=== PATIENT | male | born 1940 | race Caucasian/White ===

== ENCOUNTER 2019-10-19 06:04 | Outpatient (CLI) | payer MEDICARE, OTHER ==
[2019-10-19 11:34] LABS: #Eosinphils 0.1 thou/uL (0.0-0.7); %Monocytes 10.7 % (0.0-10.0); Mean Corpuscular Volume 96.5 fL (78.0-98.0); Platelet Count 178 thou/uL (130-400); RBC Distribution Width 12.8 % (11.5-14.5)
[2019-10-19 11:53] LABS: #Basophils 0.1 thou/uL (0.0-0.2); #Lymphocytes 2.4 thou/uL (1.20-3.40); #Monocytes 0.9 thou/uL (0.11-0.59); #Neutrophils 4.6 thou/uL (1.40-6.50); %Basophils 0.7 % (0.0-1.0); %Eosinophils 1.8 % (0.0-10.0); %Lymphocytes 29.2 % (21.0-51.0); %Neutrophils 57.5 % (42.0-75.0); Hemoglobin 13.9 g/dL (14.0-18.0); Mean Corpuscular HGB CONC 32.9 g/dL (32.0-36.0); Mean Corpuscular Hemoglobin 31.8 pg (27.0-31.0); Mean Platelet Volume 8.6 fL (7.4-10.4); Red Blood Cell (RBC) Count 4.36 mill/uL (4.70-6.10); White Blood Cell (WBC) Count 8.1 thou/uL (4.8-10.8)
[2019-10-19 15:16] LABS: ALT (SGPT) 10 U/L (8-55); AST (SGOT) 16 U/L (5-34); Albumin 4.1 g/dL (3.4-4.8); Alkaline Phosphatase 91 U/L (40-110); Anion Gap 16 mmol/L (10-20); BUN (Urea Nitrogen) 21 mg/dL (8.4-25.7); Bilirubin, Total 0.5 mg/dL (0.2-1.2); Calc. Creatinine Clearance 0 mL/min (70-130); Calcium 9.3 mg/dL (7.8-10.44); Carbon Dioxide 21 mmol/L (23-31); Chloride 107 mmol/L (98-107); Cholesterol 192 mg/dl (< 200 Desired); Estimated GFR-MDRD 55; Globulin 3.5 g/dL (2.4-3.5); Glucose 91 mg/dL (83-110); HDL Cholesterol 48 mg/dL (>60 Neg Risk); LDL Cholesterol, Calculated 128 mg/dL; Potassium 4.2 mmol/L (3.5-5.1); Protein, Total 7.6 g/dL (5.8-8.1); Sodium 140 mmol/L (136-145); Triglycerides 81 mg/dL (Less than 150)
[2019-10-19 20:19] LABS: SARS-CoV-2 MS2 Positive; SARS-CoV-2 N Gene Negative; SARS-CoV-2 S Gene Negative; SARS-CoV-2 orf1ab Negative
== END 2019-10-19 06:05 | disposition home or self-care (01) ==
LOC: LABBT 06:04
PROVIDERS: ATTEND Internal Medicine Cardiovascular Disease
DX: Z01.812 Encounter for preprocedural laboratory examination (principal); Z11.59 Encounter for screening for other viral diseases; R94.39 Abnormal result of other cardiovascular function study
CPT/HCPCS: 80053; 80061; 85025; U0003; 87635

== ENCOUNTER 2019-10-21 05:57 | Inpatient (IN) | payer MEDICARE, OTHER ==
[2019-10-21] MEDS ORDERED: Heparin 10,000 UNITS/1 ML VIAL ONE (06:43)
[2019-10-21] MEDS ORDERED: Midazolam HCl 2 mg/2 ml Vial ONE ×2 (06:52→08:09)
[2019-10-21] MEDS ORDERED: Fentanyl 100 MCG/2 ML VIAL ONE (07:07)
[2019-10-21] MEDS ORDERED: Nitroglycerin 100MG/250ML BOT 250 ML ONE (07:51)
[2019-10-21] MEDS ORDERED: Bivalirudin 250 MG VIAL ONE (08:01)
[2019-10-21] MEDS ORDERED: Clopidogrel Bisulfate 300 MG TAB ONE (08:01)
[2019-10-21] MEDS ORDERED: Ondansetron PF 4 MG/2 ML Vial ONE (08:09)
[2019-10-21] MEDS ORDERED: Nitroglycerin 50 MG/250 ML BOT 250 ML IVPB SCH (08:45)
[2019-10-21] MEDS ORDERED: Sodium Chloride 0.9% 1,000 ML IV SCH (09:00)
[2019-10-21] MEDS ORDERED: Metoprolol Tartrate 25 MG TAB PO SCH (09:00)
[2019-10-21] MEDS ORDERED: Nitroglycerin 0.4 MG TAB (25 Tab Bottle) SL PRN (09:01)
[2019-10-21] MEDS ORDERED: Morphine 2 MG/ML SYRINGE SLOW IVP PRN (09:01)
[2019-10-21] MEDS ORDERED: Iopamidol 370 76% 100 ML VIAL ONE (09:09)
[2019-10-21] MEDS ORDERED: Iopamidol 370 76% 50 ML VIAL FS ONE (09:09)
[2019-10-21] MEDS: Lisinopril 20 MG TAB PO SCH (12:49)
[2019-10-21] MEDS ORDERED: Carvedilol 3.125 MG TAB PO SCH (13:00)
--- NOTE | 2019-10-21 15:50 | EKG ---
Test Reason : POST STENTS X3-LAD Blood Pressure : / mmHG Vent. Rate : 064 BPM Atrial Rate : 064 BPM P-R Int : 204 ms QRS Dur : 132 ms QT Int : 434 ms P-R-T Axes : 067 -45 038 degrees QTc Int : 447 ms Normal sinus rhythm Left axis deviation Right bundle branch block Abnormal ECG Confirmed by GATITO NAIR ([id number]) on 10/21/2019 3:50:16 PM Referred By: JONELLE Confirmed By:GATITO NAIR
[2019-10-21] MEDS: Carvedilol 3.125 MG TAB PO SCH (18:00)
--- NOTE | 2019-10-21 18:05 | CON ---
DATE OF CONSULTATION: 10/20/2021 HISTORY OF PRESENT ILLNESS: Checo Sands is a very pleasant 79-year-old male. He has undergone coronary stenting. He says he is feeling well, but came in actually because of an abnormal stress test. Apparently, his graft to his left anterior descending coronary artery was occluded, so he had stenting. He still has a sheath in. He has no complaints at this time. I am consulted because of his presence in the critical care unit. He has not been hospitalized here before. PAST MEDICAL HISTORY: Remarkable for: 1. Coronary artery bypass grafting. 2. History of lipid disorder. FAMILY HISTORY: Negative for lung disease in early age. SOCIAL HISTORY: Unremarkable. REVIEW OF SYSTEMS: Otherwise negative. PHYSICAL EXAMINATION: GENERAL: He is in no distress, heart rate is in the 60s, blood pressure 185/87, respiratory rate is 19. It is noted when we started talking about hunting, his blood pressure did go up. HEAD AND NECK: Unremarkable. LUNGS: Clear. HEART: Regular rhythm. No S3. Grade 1/6 to 2/6 systolic murmur. ABDOMEN: Soft and nontender. EXTREMITIES: Without clubbing, cyanosis, or edema. His feet are warm. IMPRESSION: Status post coronary stenting with a history of coronary artery bypass grafting in the past. PLAN: Continue supportive care. Once his coagulopathy is corrected and sheath will come out and hopefully he will be ambulatory by tomorrow. Some new medications are started, that should control his blood pressure. TIME SPENT: This is a 70-minute consult, 50% of the time spent on the unit coordinating care. Job ID: [id number] MTDD
[2019-10-21] MEDS ORDERED: Ondansetron PF 4 MG/2 ML Vial IVP PRN (20:07)
[2019-10-21] MEDS: Atorvastatin Calcium 40 MG TAB PO SCH (20:56)
[2019-10-22 03:44] LABS: #Lymphocytes 1.4 thou/uL (1.20-3.40); #Neutrophils 9.3 thou/uL (1.40-6.50); %Basophils 0.1 % (0.0-1.0); %Eosinophils 0.1 % (0.0-10.0); %Monocytes 8.4 % (0.0-10.0); %Neutrophils 79.4 % (42.0-75.0); Hemoglobin 12.1 g/dL (14.0-18.0); Mean Corpuscular HGB CONC 32.4 g/dL (32.0-36.0); Mean Corpuscular Hemoglobin 31.1 pg (27.0-31.0); Mean Corpuscular Volume 95.9 fL (78.0-98.0); Mean Platelet Volume 8.7 fL (7.4-10.4); Platelet Count 176 thou/uL (130-400); RBC Distribution Width 12.8 % (11.5-14.5); Red Blood Cell (RBC) Count 3.88 mill/uL (4.70-6.10); White Blood Cell (WBC) Count 11.7 thou/uL (4.8-10.8)
[2019-10-22 04:11] LABS: ALT (SGPT) Less than 7 U/L (8-55); AST (SGOT) 12 U/L (5-34); Albumin 3.5 g/dL (3.4-4.8); Alkaline Phosphatase 77 U/L (40-110); Anion Gap 9 mmol/L (10-20); BUN (Urea Nitrogen) 23 mg/dL (8.4-25.7); Bilirubin, Total 0.7 mg/dL (0.2-1.2); Calc. Creatinine Clearance 45 mL/min (70-130); Calcium 9.1 mg/dL (7.8-10.44); Carbon Dioxide 27 mmol/L (23-31); Chloride 106 mmol/L (98-107); Estimated GFR-MDRD 45; Globulin 3.4 g/dL (2.4-3.5); Glucose 110 mg/dL (83-110); Potassium 3.9 mmol/L (3.5-5.1); Protein, Total 6.9 g/dL (5.8-8.1); Sodium 138 mmol/L (136-145)
[2019-10-22] MEDS: Clopidogrel Bisulfate 75 MG TAB PO SCH (08:28)
[2019-10-22] MEDS: Carvedilol 3.125 MG TAB PO SCH ×3 (08:28→20:47)
[2019-10-22] MEDS: Aspirin 81 mg Enteric Coated Tablet PO SCH (08:28)
[2019-10-22] MEDS: Lisinopril 20 MG TAB PO SCH (08:28)
--- NOTE | 2019-10-22 11:44 | PRG ---
DATE OF SERVICE: 10/22/2019 SUBJECTIVE: Checo Sands has no chest pain. OBJECTIVE: VITAL SIGNS: Heart rate in the 60s, blood pressure 146/82, respiratory rates in the teens to low 20s. LUNGS: Clear. HEART: Regular rhythm. ABDOMEN: Soft. LABORATORY DATA: White count 11.7, hemoglobin 12.1, platelets 176. Electrolytes are normal. Creatinine is 1.5. Creatinine on 10/18 was 1.26. IMPRESSION: 1. Status post coronary stenting. 2. Acute on chronic kidney disease with a bump in creatinine as expected after contrast. This should normalize quickly. He is stable from my standpoint either to move out or even go home if Cardiology agrees. We will sign off. Job ID: [id number]
--- NOTE | 2019-10-22 14:03 | EKG ---
Test Reason : Blood Pressure : / mmHG Vent. Rate : 072 BPM Atrial Rate : 072 BPM P-R Int : 184 ms QRS Dur : 146 ms QT Int : 438 ms P-R-T Axes : 073 -35 046 degrees QTc Int : 479 ms Sinus rhythm with Premature atrial complexes Left axis deviation Right bundle branch block Abnormal ECG Confirmed by GATITO NAIR ([id number]) on 10/22/2019 2:02:35 PM Referred By: JONELLE Confirmed By:GATITO NAIR
[2019-10-22 14:04] VITALS: BMI 24.2
[2019-10-22] MEDS: Atorvastatin Calcium 40 MG TAB PO SCH (20:47)
[2019-10-23 05:22] LABS: Anion Gap 8 mmol/L (10-20); BUN (Urea Nitrogen) 27 mg/dL (8.4-25.7); Calc. Creatinine Clearance 43 mL/min (70-130); Calcium 9.1 mg/dL (7.8-10.44); Carbon Dioxide 28 mmol/L (23-31); Chloride 105 mmol/L (98-107); Estimated GFR-MDRD 45; Glucose 100 mg/dL (83-110); Potassium 4.1 mmol/L (3.5-5.1); Sodium 137 mmol/L (136-145)
[2019-10-23] MEDS: Aspirin 81 mg Enteric Coated Tablet PO SCH (08:24)
[2019-10-23] MEDS: Lisinopril 20 MG TAB PO SCH (08:25)
[2019-10-23] MEDS: Carvedilol 3.125 MG TAB PO SCH (08:25)
[2019-10-23] MEDS: Clopidogrel Bisulfate 75 MG TAB PO SCH (08:25)
[2019-10-23] MEDS ORDERED: Carvedilol 6.25 MG TAB PO SCH ×2 (09:30→17:00)
[2019-10-23] MEDS ORDERED: Carvedilol 3.125 MG TAB PO SCH (09:45)
[2019-10-23 11:04] VITALS: TEMP 98.3
[2019-10-23 12:49] VITALS: BP 181/77
--- NOTE | 2019-10-24 00:18 | DIS ---
DATE OF ADMISSION: 10/21/2019 DATE OF DISCHARGE: 10/23/2019 DISCHARGE DIAGNOSES: 1. Drug-eluting stents placed in the proximal to mid LAD. 2. Status post CABG x1 to the distal right coronary artery, which is occluded as well as the right coronary artery occluded. 3. 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 4. Hypertension, poor control. 5. Hypercholesterolemia, poor control. 6. Former smoker. 7. Positive family history. 8. History of bladder cancer. 9. Anginal equivalent dyspnea on exertion, which dramatically improved after stenting. DISCHARGE MEDICATIONS: 1. Aspirin 81 daily. 2. Atorvastatin will be increased to 80 mg at bedtime. 3. Carvedilol 6.25 b.i.d. 4. Plavix 75 mg daily. 5. Lisinopril 20 mg daily. 6. Nitroglycerin 0.4 mg sublingually p.r.n. 7. Ranexa 500 mg b.i.d. 8. Meloxicam 15 mg p.r.n. DISCHARGE DISPOSITION: The patient to be seen in 1 month with fasting lipid profile with complete metabolic profile being obtained. It is anticipated that the Ranexa may be further increased. He may also need to have an increase in his carvedilol. HOSPITAL COURSE: Mr. Sands was evaluated in office for exertional dyspnea. He denied any exertional dyspnea, but his family stated that they noticed that he would become very short of breath with minimal exertion. He underwent Cardiolite testing and was found to have proximal to distal inferior wall fixed defect, as well as apical ischemia. He underwent cardiac catheterization. Right and left heart catheterization were performed and there did not appear to be significant gradient across his bioprosthetic aortic valve. Left ventriculogram revealed inferobasal akinesis and moderate inferior and mild distal anterior hypokinesis with ejection fraction of 40% to 45%. There was an 80% to 90% proximal LAD lesion, 30 followed by 20% ramus lesion, 70% mid circumflex lesion. The right coronary artery had 70 followed by 80 followed by total occlusion in the mid right coronary artery. The distal vessel filled faintly. The graft to the distal right coronary artery was occluded. He then underwent stent placement in the proximal mid LAD. Synergy 2.25 x 38, 2.25 x 24 and 2.5 x 12 were placed. There was excellent results. 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 He was placed on carvedilol and this was gradually increased. At the time of discharge, he was walking 650 feet in the [place] and in general states he does not have dyspnea and he feels much better than he has for sometime. Job ID: [id number] [facility]
== END 2019-10-23 14:37 | disposition home or self-care (01) | DRG 247 ==
LOC: CCL 05:57 → CCU 08:15 → 2NO 10-22 19:47
PROVIDERS: ADMIT Internal Medicine Cardiovascular Disease; ATTEND Internal Medicine Cardiovascular Disease
PROC: 027036Z Dilation of Coronary Artery, One Artery with Three Drug-eluting Intraluminal Devices, Percutaneous Approach (ICD-10-PCS; principal; 2019-10-21)
PROC: 4A023N8 Measurement of Cardiac Sampling and Pressure, Bilateral, Percutaneous Approach (ICD-10-PCS; 2019-10-21)
PROC: B2111ZZ Fluoroscopy of Multiple Coronary Arteries using Low Osmolar Contrast (ICD-10-PCS; 2019-10-21)
PROC: B2121ZZ Fluoroscopy of Single Coronary Artery Bypass Graft using Low Osmolar Contrast (ICD-10-PCS; 2019-10-21)
PROC: B2151ZZ Fluoroscopy of Left Heart using Low Osmolar Contrast (ICD-10-PCS; 2019-10-21)
DX: I25.810 Atherosclerosis of coronary artery bypass graft(s) without angina pectoris (principal); N17.9 Acute kidney failure, unspecified; Z11.59 Encounter for screening for other viral diseases; I25.10 Atherosclerotic heart disease of native coronary artery without angina pectoris; E78.5 Hyperlipidemia, unspecified; M19.90 Unspecified osteoarthritis, unspecified site; H91.93 Unspecified hearing loss, bilateral; N18.9 Chronic kidney disease, unspecified; I12.9 Hypertensive chronic kidney disease with stage 1 through stage 4 chronic kidney disease, or unspecified chronic kidney disease; T50.8X5A Adverse effect of diagnostic agents, initial encounter; E78.00 Pure hypercholesterolemia, unspecified; Z87.891 Personal history of nicotine dependence; Z95.4 Presence of other heart-valve replacement; Z85.51 Personal history of malignant neoplasm of bladder; Z85.54 Personal history of malignant neoplasm of ureter; Z97.4 Presence of external hearing-aid
CPT/HCPCS: 36415; 80048; 80053; 80061; 85025; 85347; 87635; 92928; 93005; 93010; 93461; 93798; 99152; 99153; C1874; C9600; J0583; J1644; J2250; J2405; J3010; Q9967; U0003

== ENCOUNTER 2020-07-22 12:29 | Outpatient (CLI) | payer MEDICARE | END 2020-07-22 12:30 | disposition home or self-care (01) | LOC: BICULT 12:29 | PROVIDERS: ATTEND Internal Medicine Nephrology | DX: N18.30 Chronic kidney disease, stage 3 unspecified (principal) | CPT/HCPCS: 76770 ==

== ENCOUNTER 2020-08-11 12:35 | Outpatient (CLI) | payer MEDICARE | END 2020-08-11 12:36 | disposition home or self-care (01) | LOC: BICCT 12:35 | PROVIDERS: ATTEND Internal Medicine Nephrology | DX: N18.30 Chronic kidney disease, stage 3 unspecified (principal); N28.1 Cyst of kidney, acquired; N28.9 Disorder of kidney and ureter, unspecified | CPT/HCPCS: 74176 ==

== ENCOUNTER 2020-09-20 07:54 | Outpatient (CLI) | payer MEDICARE ==
[2020-09-20] MEDS ORDERED: Magnevist 469MG/ML 20 ML VIAL ONE (09:09)
== END 2020-09-20 07:55 | disposition home or self-care (01) ==
LOC: BICMRI 07:54
PROVIDERS: ATTEND Urology
DX: N28.89 Other specified disorders of kidney and ureter (principal); K76.89 Other specified diseases of liver; N28.1 Cyst of kidney, acquired
CPT/HCPCS: 71046; 74183; 82565; A9579